=== PATIENT | female | born 1950 | race Caucasian/White ===

== ENCOUNTER 2021-03-05 12:17 | Emergency (ER) | payer MEDICAID, SELFPAY ==
[~2021-03-05] VITALS: Ht 154.9 cm; Wt 69.4 kg
[2021-03-05 12:25] VITALS: BP_SYST 124
--- NOTE | 2021-03-05 12:25 | NUR ---
Pt to bed 5 for evaluation.
--- NOTE | 2021-03-05 12:30 | NUR ---
Pt AAO and ambulatory reporting right shoulder injury after she was horse-playing with grandchild. Pt has two prior fractures in same shoulder. Right shoulder is noted as swollen and taught. Pt reports 10/10 pain scale.
--- NOTE | 2021-03-05 12:40 | NUR ---
Report given to MEE Canchola who will assume care.
[2021-03-05] MEDS ORDERED: MORPHINE 4 MG INJ. 4 MG/ML VIAL IM ONE (13:30)
--- NOTE | 2021-03-05 13:30 | NUR ---
PT RESTING QUIETLY AWAITING DISPOSITION.
--- NOTE | 2021-03-05 14:05 | NUR ---
sling applied to right shoulder. pms present before and after sling application
[2021-03-05] MEDS ORDERED: IBUP-1969 PO (14:21)
[2021-03-05] MEDS ORDERED: OXYC-128 PO (14:22)
[2021-03-05] MEDS ORDERED: LIDO1ADH22 TP (14:22)
--- NOTE | 2021-03-05 14:57 | NUR ---
Patient given written and verbal discharge instructions and verbalizes understanding. DR. ROWENA VITAL MD discussed with patient the results and treatment provided. Patient in stable condition. ID arm band removed. Patient educated on pain management and to follow up with PMD. Pain Scale 0/10. Opportunity for questions provided and answered.
[2021-03-05 14:59] VITALS: BP_SYST 124
== END 2021-03-05 14:57 | disposition home or self-care (01) ==
LOC: SED 12:17
DX: S46.911A Strain of unspecified muscle, fascia and tendon at shoulder and upper arm level, right arm, initial encounter (principal); Z79.899 Other long term (current) drug therapy; X50.0XXA Overexertion from strenuous movement or load, initial encounter; Y93.89 Activity, other specified; Y92.89 Other specified places as the place of occurrence of the external cause; Y99.8 Other external cause status
CPT/HCPCS: 73030; 96372; 99283; J2270

== ENCOUNTER 2021-09-25 07:33 | Emergency (ER) | payer MEDICAID ==
[~2021-09-25] VITALS: Ht 154.9 cm; Wt 72.6 kg
[~2021-09-25 07:33] MED LIST: IBUP-1969 PO; LIDO1ADH22 TP; OXYC-128 PO
[2021-09-25 07:43] VITALS: BP_SYST 106
--- NOTE | 2021-09-25 07:50 | NUR ---
Patient to ER bed 6 to gown for evaluation. Side rails up. Report given to GRUPO VALLES.
--- NOTE | 2021-09-25 07:58 | NUR ---
ER at bedside examining patient.
[2021-09-25] MEDS ORDERED: LACTULOSE 20 GM/30 ML UDC PO ONE (08:00)
[2021-09-25] MEDS ORDERED: ACETAMINOPHEN 500 MG TABLET PO ONE (08:00)
[2021-09-25] MEDS ORDERED: MINERAL OIL 133 ML ENEMA RC ONE (08:00)
[2021-09-25] MEDS ORDERED: POLYETHYLENE GLYCOL 3350, 17 GM/ POWD.PACK PO ONE (08:00)
[2021-09-25] MEDS ORDERED: KETOROLAC TROMETHAMINE 30 MG VIAL IM ONE (08:30)
[2021-09-25] MEDS ORDERED: POLY238P32 PO (09:01)
[2021-09-25] MEDS ORDERED: DOCU283E RC (09:01)
[2021-09-25 09:03] VITALS: BP_SYST 132
--- NOTE | 2021-09-25 09:03 | NUR ---
Patient given written and verbal discharge instructions and verbalizes understanding. ER MD discussed with patient the results and treatment provided. Patient in stable condition. ID arm band removed. IV catheter removed intact and dressing applied, no active bleeding. Rx of MIRALAX given. Patient educated on pain management and to follow up with PMD. Pain Scale . Opportunity for questions provided and answered. Medication side effect fact sheet provided.
== END 2021-09-25 09:03 | disposition home or self-care (01) ==
LOC: SED 07:33
DX: K59.00 Constipation, unspecified (principal); R10.30 Lower abdominal pain, unspecified; Z79.899 Other long term (current) drug therapy
CPT/HCPCS: 99283; 74018; 96372; J1885

== ENCOUNTER 2022-09-29 20:18 | Inpatient (IN) | payer OTHER, MEDICAID ==
[~2022-09-29] VITALS: Ht 160 cm; Wt 76.7 kg
[~2022-09-29 20:18] MED LIST changes: +DOCU283E RC; +POLY238P32 PO
[2022-09-29 21:21] VITALS: BP_SYST 96; PULSE 85; RESP 17; TEMP 97.1; O2SAT 96
[2022-09-29 22:02] LABS: BASOPHILS # (AUTO) 0.1 K/uL (0.0-0.2); BASOPHILS % (AUTO) 1.4 % (0.0-2.0); EOSINOPHILS # (AUTO) 0.1 K/uL (0.0-0.4); EOSINOPHILS % (AUTO) 1.1 % (0.0-4.0); HEMATOCRIT 38.7 % (36-48); HEMOGLOBIN 12.1 g/dL (12.0-16.0); LYMPHOCYTES # (AUTO) 2.3 K/uL (1.0-5.5); LYMPHOCYTES % (AUTO) 37.8 % (20.5-51.5); MEAN CORPUSCULAR HEMOGLOBIN 28 pg (27-31); MEAN CORPUSCULAR HGB CONC 31 % (32-36); MEAN CORPUSCULAR VOLUME 89 fL (79.0-98.0); MONOCYTES # (AUTO) 0.4 K/uL (0.0-1.0); MONOCYTES % (AUTO) 7.1 % (1.7-9.3); NEUTROPHILS # (AUTO) 3.2 K/uL (1.8-7.7); NEUTROPHILS % (AUTO) 52.6 % (40.0-70.0); PLATELET COUNT (AUTO) 218 K/uL (130-430); RED BLOOD CELL COUNT(AUTO) 4.35 MIL/uL (4.2-6.2); RED CELL DISTRIBUTION WIDTH 15.7 % (9.0-15.0)
[2022-09-29 22:44] LABS: ANION GAP 9 (5-15); CALCIUM 9.1 mg/dL (8.4-11.0); CARBON DIOXIDE 25 mmol/L (23-29); CHLORIDE 105 mmol/L (98-107); CREATININE 0.69 mg/dL (0.55-1.30); GLUCOSE 96 mg/dL (74-106); POTASSIUM 4.3 mmol/L (3.5-5.1); SODIUM SERUM 139 mmol/L (136-145); UREA NITROGEN, BLOOD 18 mg/dL (8-21)
[2022-09-29 22:59] LABS: ALANINE AMINOTRANSFERASE 11 U/L (12-78); ALBUMIN 3.1 g/dL (3.4-4.8); ASPARTATE AMINOTRANSFERASE 12 U/L (10-37); TOTAL BILIRUBIN 0.2 mg/dL (0.0-1.0); TOTAL PROTEIN, SERUM 6.5 g/dL (6.4-8.3)
[2022-09-29 23:04] LABS: GFR AFRICAN AMERICAN 108 mL/min (>90); GFR NON AFRICAN-AMERICAN 89 mL/min (>90)
[2022-09-29] MEDS ORDERED: ALBUTEROL SULFATE 0.083% 2.5 MG/3 ML VIAL.NEB INH ONE (23:15)
[2022-09-29] MEDS ORDERED: IPRATROPIUM BROM 0.5 MG/2.5 ML VIAL.NEB (ATROVENT) INH ONE (23:15)
[2022-09-29] MEDS ORDERED: MORPHINE 4 MG INJ. 4 MG/ML VIAL IVP ONE (23:30)
[2022-09-29] MEDS ORDERED: NACL 0.9% 1,000 ML IV ONE (23:30)
[2022-09-29 23:37] LABS: INFLUENZA TYPE A NEGATIVE (NEGATIVE); INFLUENZA TYPE B NEGATIVE (NEGATIVE)
[2022-09-30] MEDS ORDERED: iohexoL 350 mgI/mL, 100 ML INFUS..BTL IV ONE (00:56)
[2022-09-30] MEDS ORDERED: MORPHINE 4 MG INJ. 4 MG/ML VIAL IVP ONE ×2 (02:00→05:45)
[2022-09-30] MEDS ORDERED: ALBUTEROL SULFATE 0.083% 2.5 MG/3 ML VIAL.NEB INH ONE (02:00)
[2022-09-30] MEDS ORDERED: IPRATROPIUM BROM 0.5 MG/2.5 ML VIAL.NEB (ATROVENT) INH ONE (02:00)
[2022-09-30] MEDS ORDERED: ACETAMINOPHEN 500 MG TABLET PO ONE (05:00)
[2022-09-30] MEDS ORDERED: KETOROLAC TROMETHAMINE 15 MG VIAL IVP ONE (05:00)
[2022-09-30] MEDS ORDERED: HEPARIN 25,000 UNITS/D5W 250ML 250 ML IV ONE (05:45)
[2022-09-30] MEDS ORDERED: ALBUTEROL SULFATE 0.083% 2.5 MG/3 ML VIAL.NEB INH PRN (05:45)
[2022-09-30] MEDS ORDERED: *HEPARIN PER PHARMACY XX ONE (05:45)
[2022-09-30] MEDS ORDERED: NICOTINE 14 MG/24 HR PATCH.TD24 TD ONE ×2 (06:00→10:00)
[2022-09-30] MEDS ORDERED: QUET25TA36 PO (06:05)
[2022-09-30] MEDS ORDERED: GABA-529 PO (06:05)
[2022-09-30] MEDS ORDERED: CARI350T27 PO (06:05)
[2022-09-30] MEDS ORDERED: OMEP40CA20 PO (06:06)
[2022-09-30 06:08] LABS: BASOPHILS # (AUTO) 0.1 K/uL (0.0-0.2); EOSINOPHILS % (AUTO) 0.8 % (0.0-4.0); HEMATOCRIT 34.5 % (36-48); HEMOGLOBIN 10.7 g/dL (12.0-16.0); LYMPHOCYTES # (AUTO) 1.9 K/uL (1.0-5.5); LYMPHOCYTES % (AUTO) 37.7 % (20.5-51.5); MEAN CORPUSCULAR HEMOGLOBIN 28 pg (27-31); MEAN CORPUSCULAR HGB CONC 31 % (32-36); MEAN CORPUSCULAR VOLUME 90 fL (79.0-98.0); MONOCYTES # (AUTO) 0.4 K/uL (0.0-1.0); MONOCYTES % (AUTO) 7.6 % (1.7-9.3); NEUTROPHILS # (AUTO) 2.7 K/uL (1.8-7.7); NEUTROPHILS % (AUTO) 52.9 % (40.0-70.0); PLATELET COUNT (AUTO) 161 K/uL (130-430); RED BLOOD CELL COUNT(AUTO) 3.84 MIL/uL (4.2-6.2); RED CELL DISTRIBUTION WIDTH 16.1 % (9.0-15.0); WHITE BLOOD COUNT (AUTO) 5.1 K/uL (4.8-10.8)
[2022-09-30 06:26] LABS: CALCIUM 8.9 mg/dL (8.4-11.0); CREATININE 0.58 mg/dL (0.55-1.30); POTASSIUM 4.1 mmol/L (3.5-5.1); THYROID STIMULATING HORMONE 5.42 uIu/mL (0.34-4.82)
[2022-09-30 06:32] LABS: PROTHROMBIN TIME 10.1 SECS (9.5-12.5)
[2022-09-30] MEDS ORDERED: HEPARIN SODIUM,PORCINE 3000 UNITS/0.6 ML BOLUS IVP PRN (07:00)
[2022-09-30] MEDS ORDERED: HEPARIN 25,000 UNITS in 250 ML PREMIX IV PRN (07:00)
[2022-09-30] MEDS ORDERED: HEPARIN SODIUM,PORCINE 2000 UNITS/0.4 ML BOLUS IVP PRN (07:00)
[2022-09-30] MEDS ORDERED: HEPARIN SODIUM,PORCINE 5,000 UNITS/ML VIAL IVP ONE (07:30)
[2022-09-30 08:37] VITALS: BP_SYST 117; PULSE 71; O2SAT 95
[2022-09-30 08:55] VITALS: BP_SYST 102; PULSE 73; RESP 18; TEMP 96.6; O2SAT 97
[2022-09-30] MEDS ORDERED: NALOXONE HCL 0.4 MG/ML AMP (NARCAN) IVP PRN (10:15)
[2022-09-30] MEDS: MORPHINE 2 MG/ML INJ. SYRINGE IVP PRN ×3 (10:20→21:04)
[2022-09-30] MEDS ORDERED: PANTOPRAZOLE SODIUM 40 MG/VIAL (PROTONIX) IVP ONE (11:15)
[2022-09-30] MEDS ORDERED: IPRATROPIUM/ALBUTEROL SULFATE 3 ML AMPUL.NEB (DUONEB) INH PRN (11:15)
[2022-09-30 12:53] LABS: PHOSPHORUS 4.2 mg/dL (2.7-4.5)
[2022-09-30] MEDS ORDERED: IBUPROFEN 600 MG TABLET PO PRN (13:15)
[2022-09-30] MEDS ORDERED: OXYCODONE/ACETAMINOPHEN 5-325 TABLET PO PRN (13:15)
[2022-09-30] MEDS ORDERED: methylPREDNISolone SOD SUCC/PF 62.5 MG/ML VIAL IVP SCH (14:00)
[2022-09-30] MEDS: carisoprodoL 350 MG TABLET PO PRN ×3 (14:03→21:34)
[2022-09-30] MEDS: methylPREDNISolone SOD SUCC/PF 62.5 MG/ML VIAL IVP SCH ×2 (14:05→18:53)
[2022-09-30 17:05] VITALS: BP_SYST 110; PULSE 70; RESP 16; TEMP 96.8; O2SAT 98
[2022-09-30 19:00] VITALS: BP_SYST 116; PULSE 97; RESP 16; TEMP 97.3; O2SAT 96
[2022-09-30 20:00] VITALS: BP_SYST 116; PULSE 98; RESP 16; TEMP 97.3; O2SAT 96
[2022-09-30 20:05] VITALS: O2SAT 96
[2022-09-30] MEDS: IPRATROPIUM/ALBUTEROL SULFATE 3 ML AMPUL.NEB (DUONEB) INH SCH (20:05)
[2022-09-30] MEDS: GABAPENTIN 100 MG CAPSULE PO SCH (21:01)
[2022-09-30] MEDS: QUEtiapine FUMARATE 25 MG TABLET PO SCH (21:01)
[2022-10-01] VITALS (11 sets, daily range): BP systolic 99–126; PULSE 64–97; RESP 16–18; TEMP 97.1–98.1; O2SAT 90–98
[2022-10-01] MEDS: IPRATROPIUM/ALBUTEROL SULFATE 3 ML AMPUL.NEB (DUONEB) INH SCH ×4 (01:19→19:53)
[2022-10-01] MEDS: methylPREDNISolone SOD SUCC/PF 62.5 MG/ML VIAL IVP SCH ×4 (01:38→17:46)
[2022-10-01] MEDS: MORPHINE 2 MG/ML INJ. SYRINGE IVP PRN ×4 (04:56→21:10)
[2022-10-01] MEDS: carisoprodoL 350 MG TABLET PO PRN ×3 (04:57→20:55)
[2022-10-01 05:56] LABS: BASOPHILS % (AUTO) 0.1 % (0.0-2.0); HEMATOCRIT 37.3 % (36-48); HEMOGLOBIN 11.9 g/dL (12.0-16.0); LYMPHOCYTES # (AUTO) 0.8 K/uL (1.0-5.5); LYMPHOCYTES % (AUTO) 16.9 % (20.5-51.5); MEAN CORPUSCULAR HEMOGLOBIN 28 pg (27-31); MEAN CORPUSCULAR HGB CONC 32 % (32-36); MEAN CORPUSCULAR VOLUME 89 fL (79.0-98.0); MONOCYTES # (AUTO) 0.1 K/uL (0.0-1.0); MONOCYTES % (AUTO) 1.4 % (1.7-9.3); NEUTROPHILS # (AUTO) 3.7 K/uL (1.8-7.7); NEUTROPHILS % (AUTO) 81.6 % (40.0-70.0); PLATELET COUNT (AUTO) 159 K/uL (130-430); RED BLOOD CELL COUNT(AUTO) 4.21 MIL/uL (4.2-6.2); RED CELL DISTRIBUTION WIDTH 15.8 % (9.0-15.0); WHITE BLOOD COUNT (AUTO) 4.5 K/uL (4.8-10.8)
[2022-10-01 06:06] LABS: CALCIUM 9.6 mg/dL (8.4-11.0); CREATININE 0.57 mg/dL (0.55-1.30); POTASSIUM 4.3 mmol/L (3.5-5.1)
[2022-10-01] MEDS ORDERED: LIDOCAINE TP SCH (09:00)
[2022-10-01] MEDS: NICOTINE 14 MG/24 HR PATCH.TD24 TD SCH ×3 (09:00→09:33)
[2022-10-01] MEDS ORDERED: PANTOPRAZOLE SODIUM 40 MG/VIAL (PROTONIX) IVP SCH (09:00)
[2022-10-01] MEDS ORDERED: DOCUSATE SODIUM RC SCH (09:00)
[2022-10-01] MEDS: POLYETHYLENE GLYCOL 3350, 17 GM/ POWD.PACK PO SCH (09:00)
[2022-10-01] MEDS ORDERED: MENTHOL TP SCH (09:00)
[2022-10-01] MEDS: APIXABAN 2.5 MG TABLET PO SCH ×3 (09:00→20:59)
[2022-10-01] MEDS ORDERED: OMEPRAZOLE Non-Formulary 20 MG CAPSULE.DR PO SCH (09:00)
[2022-10-01] MEDS ORDERED: [UNRECOGNIZED DRUG - OTHER] TP SCH (09:00)
[2022-10-01] MEDS: GABAPENTIN 100 MG CAPSULE PO SCH ×2 (09:25→20:55)
[2022-10-01] MEDS: PANTOPRAZOLE SODIUM 40 MG TAB PO SCH (09:25)
[2022-10-01] MEDS ORDERED: DOCUSATE SODIUM 250 MG CAPSULE PO ONE (13:15)
[2022-10-01] MEDS: BISACODYL 5 MG TABLET.DR (DULCOLAX) PO PRN (16:04)
[2022-10-01] MEDS: QUEtiapine FUMARATE 25 MG TABLET PO SCH (20:56)
[2022-10-02] MEDS: methylPREDNISolone SOD SUCC/PF 62.5 MG/ML VIAL IVP SCH ×3 (00:11→12:50)
[2022-10-02 00:33] VITALS: BP_SYST 126; PULSE 61; RESP 18; TEMP 97; O2SAT 95
[2022-10-02] MEDS: IPRATROPIUM/ALBUTEROL SULFATE 3 ML AMPUL.NEB (DUONEB) INH SCH ×3 (01:00→13:20)
[2022-10-02] MEDS: MORPHINE 2 MG/ML INJ. SYRINGE IVP PRN ×2 (05:14→11:27)
[2022-10-02 06:08] LABS: BASOPHILS % (AUTO) 0.3 % (0.0-2.0); HEMATOCRIT 34.5 % (36-48); LYMPHOCYTES # (AUTO) 0.7 K/uL (1.0-5.5); LYMPHOCYTES % (AUTO) 6.9 % (20.5-51.5); MEAN CORPUSCULAR HEMOGLOBIN 29 pg (27-31); MEAN CORPUSCULAR HGB CONC 32 % (32-36); MEAN CORPUSCULAR VOLUME 90 fL (79.0-98.0); MONOCYTES # (AUTO) 0.5 K/uL (0.0-1.0); MONOCYTES % (AUTO) 5.2 % (1.7-9.3); NEUTROPHILS # (AUTO) 9.1 K/uL (1.8-7.7); NEUTROPHILS % (AUTO) 87.6 % (40.0-70.0); PLATELET COUNT (AUTO) 177 K/uL (130-430); RED BLOOD CELL COUNT(AUTO) 3.85 MIL/uL (4.2-6.2); RED CELL DISTRIBUTION WIDTH 15.8 % (9.0-15.0); WHITE BLOOD COUNT (AUTO) 10.4 K/uL (4.8-10.8)
[2022-10-02] MEDS: carisoprodoL 350 MG TABLET PO PRN (06:12)
[2022-10-02] MEDS: BISACODYL 5 MG TABLET.DR (DULCOLAX) PO PRN (06:13)
[2022-10-02 07:13] LABS: CALCIUM 9.3 mg/dL (8.4-11.0); CREATININE 0.6 mg/dL (0.55-1.30); POTASSIUM 3.9 mmol/L (3.5-5.1)
[2022-10-02 07:45] VITALS: O2SAT 98
[2022-10-02 08:00] VITALS: BP_SYST 110; PULSE 63; RESP 18; TEMP 97.7; O2SAT 97
[2022-10-02] MEDS ORDERED: DOCUSATE SODIUM 250 MG CAPSULE PO SCH (09:00)
[2022-10-02] MEDS: POLYETHYLENE GLYCOL 3350, 17 GM/ POWD.PACK PO SCH (09:00)
[2022-10-02] MEDS: APIXABAN 2.5 MG TABLET PO SCH (09:12)
[2022-10-02] MEDS: GABAPENTIN 100 MG CAPSULE PO SCH (09:12)
[2022-10-02] MEDS: PANTOPRAZOLE SODIUM 40 MG TAB PO SCH (09:12)
[2022-10-02 12:00] VITALS: BP_SYST 97; PULSE 82; RESP 16; TEMP 97.6; O2SAT 95
[2022-10-02] MEDS ORDERED: OXYCODONE/ACETAMINOPHEN *10*mg/325 mg TABLET PO PRN (12:45)
[2022-10-02 13:20] VITALS: O2SAT 99
[2022-10-02] MEDS ORDERED: PRED20TA PO (14:03)
[2022-10-02] MEDS ORDERED: APIX5TAB4 PO (14:03)
[2022-10-02] MEDS ORDERED: APIX5TAB PO (14:03)
[2022-10-02 14:29] VITALS: BP_SYST 116; PULSE 86; RESP 18; TEMP 97.8; O2SAT 94
== END 2022-10-02 14:45 | disposition home health service (06) | DRG 189 ==
LOC: SED 20:18 → STU 09-30 05:36
PROVIDERS: ADMIT Internal Medicine; ATTEND Internal Medicine
DX: J96.21 Acute and chronic respiratory failure with hypoxia (principal); I26.93 Single subsegmental thrombotic pulmonary embolism without acute cor pulmonale; J44.1 Chronic obstructive pulmonary disease with (acute) exacerbation; E44.0 Moderate protein-calorie malnutrition; D68.59 Other primary thrombophilia; M54.9 Dorsalgia, unspecified; Z20.822 Contact with and (suspected) exposure to COVID-19; F17.200 Nicotine dependence, unspecified, uncomplicated; Z90.13 Acquired absence of bilateral breasts and nipples; Z85.3 Personal history of malignant neoplasm of breast; Z98.1 Arthrodesis status; Z79.1 Long term (current) use of non-steroidal anti-inflammatories (NSAID); Z79.891 Long term (current) use of opiate analgesic; Z68.29 Body mass index [BMI] 29.0-29.9, adult
CPT/HCPCS: 36415; 71045; 71275; 76376; 80048; 80053; 83735; 83880; 84100; 84443; 84484; 85025; 85379; 85610-TC; 85730-TC; 93005; 94640; 94760; 96361; 96374; 97116-GP; 97163-GP; 99285; C9113; G0378; J1644; J1885; J2270; J2930; J7030; J7060; Q9967